=== PATIENT | male | born 1990 | race Two or more races ===

== ENCOUNTER 2016-06-12 11:51 | Emergency (ER) | payer BC, OTHER ==
[~2016-06-12] VITALS: Ht 180.3 cm; Wt 106.6 kg
[2016-06-12 12:31] VITALS: BP 141/75
[2016-06-15 04:11] LABS: HEPATITIS C VIRUS AB 0.2 s/co ratio (0.0-0.9)
== END 2016-06-12 13:46 | disposition home or self-care (01) ==
LOC: ER 11:53
DX: Z77.21 Contact with and (suspected) exposure to potentially hazardous body fluids (principal); Y04.0XXA Assault by unarmed brawl or fight, initial encounter
CPT/HCPCS: 36415; 86706; 86803; 99283; A4606; Z7610